=== PATIENT | male | born 1975 | race Caucasian/White ===

== ENCOUNTER 2019-09-07 09:08 | Emergency (ER) | payer OTHER ==
[~2019-09-07] VITALS: Ht 175.3 cm; Wt 149.7 kg
[2019-09-07 09:18] VITALS: Ht 175.3 cm; Wt 149.7 kg
[2019-09-07 11:18] VITALS: BP 138/69
== END 2019-09-07 11:18 | disposition home or self-care (01) ==
LOC: ED 09:08
DX: M23.8X1 Other internal derangements of right knee (principal); I10 Essential (primary) hypertension